=== PATIENT | female | born 1945 | race Caucasian/White ===

== ENCOUNTER → 2016-11-09 | Outpatient (CLI) | payer OTHER, MEDICARE | LOC: FIMAGING 11:27 | DX: Z12.31 Encounter for screening mammogram for malignant neoplasm of breast (principal) | CPT/HCPCS: G0202 ==

== ENCOUNTER → 2017-05-15 | Outpatient (CLI) | payer OTHER, MEDICARE | LOC: FIMAGING 16:35 | PROVIDERS: ATTEND Family Medicine | DX: M77.31 Calcaneal spur, right foot (principal) ==

== ENCOUNTER → 2017-11-12 | Outpatient (CLI) | payer OTHER | LOC: FIMAGING 09:43 | PROVIDERS: ATTEND Family Medicine | DX: Z12.31 Encounter for screening mammogram for malignant neoplasm of breast (principal) ==

== ENCOUNTER → 2018-07-18 | Outpatient (CLI) | payer OTHER | LOC: BMCIMAGING 13:50 | PROVIDERS: ATTEND Family Medicine | DX: Z13.820 Encounter for screening for osteoporosis (principal); M81.8 Other osteoporosis without current pathological fracture; Z96.643 Presence of artificial hip joint, bilateral ==

== ENCOUNTER → 2018-11-13 | Outpatient (CLI) | payer OTHER | LOC: FIMAGING 11:24 | PROVIDERS: ATTEND Family Medicine | DX: Z12.31 Encounter for screening mammogram for malignant neoplasm of breast (principal) ==

== ENCOUNTER → 2018-11-25 | Outpatient (CLI) | payer OTHER | LOC: FIMAGING 14:03 | PROVIDERS: ATTEND Family Medicine | DX: R92.8 Other abnormal and inconclusive findings on diagnostic imaging of breast (principal) ==